=== PATIENT | male | born 1995 | race Caucasian/White ===

== ENCOUNTER 2020-08-05 17:05 | Emergency (ER) | payer BC ==
[~2020-08-05] VITALS: Ht 154.9 cm; Wt 54.4 kg
[2020-08-05] MEDS ORDERED: NAPROXEN250 MG PO (18:00)
[2020-08-05] MEDS ORDERED: METHOCARBAMOL750 MG PO (18:00)
[2020-08-05 20:09] LABS: BASOPHILS % 0.4 % (0.0-1.0); EOSINOPHILS # (AUTO) 0.1 (0.0-0.4); EOSINOPHILS % 1.3 % (0.0-6.0); HEMATOCRIT 39.7 % (38.2-49.6); HEMOGLOBIN 14.1 g/dL (14.0-18.0); LYMPHOCYTES # (AUTO) 1.6 (1.0-3.2); LYMPHOCYTES % 29.7 % (18.0-39.1); MEAN CORPUSCULAR HEMOGLOBIN 31.7 pg (28-32); MEAN CORPUSCULAR HGB CONC 35.5 g/dL (31-35); MEAN CORPUSCULAR VOLUME 89.2 fL (81-99); MONOCYTES # (AUTO) 0.4 (0.2-0.8); MONOCYTES % 7.8 % (4.4-11.3); NEUTROPHILS # (AUTO) 3.3 (2.1-6.9); NEUTROPHILS % 60.6 % (38.7-80.0); PLATELET COUNT 154 x10e3/uL (140-360); RED BLOOD COUNT 4.45 x10e6/uL (4.3-5.7); RED CELL DISTRIBUTION WIDTH 13.9 % (11.7-14.4)
[2020-08-05 20:14] LABS: INR 0.94; PROTHROMBIN TIME 13.2 seconds (11.9-14.5)
[2020-08-05 20:23] LABS: ALANINE AMINOTRANSFERASE 43 IU/L (0-55); ALBUMIN 4.3 g/dL (3.5-5.0); ALBUMIN/GLOBULIN RATIO 1.1 (0.8-2.0); ALKALINE PHOSPHATASE 146 IU/L (40-150); ANION GAP 14.3 mmol/L (8-16); BLOOD UREA NITROGEN 16 mg/dL (7-26); BUN/CREATININE RATIO 16 (6-25); CALCIUM 8.7 mg/dL (8.4-10.2); CARBON DIOXIDE 29 mmol/L (22-29); CHLORIDE 98 mmol/L (98-107); CREATININE, SERUM 0.98 mg/dL (0.72-1.25); EST GLOMERULAR FILTRATION RATE > 60 ML/MIN (60-); GLUCOSE 99 mg/dL (74-118); POTASSIUM 4.3 mmol/L (3.5-5.1); SODIUM 137 mmol/L (136-145)
[2020-08-05] MEDS ORDERED: ACETAMINOPHEN 325 MG TAB PO ONE (21:00)
[2020-08-05] MEDS ORDERED: ACETAMINOPHEN 325 MG TAB ONE (21:04)
== END 2020-08-05 21:45 | disposition other institution (70) ==
LOC: ER 17:52
DX: S06.0X0A Concussion without loss of consciousness, initial encounter (principal); V43.62XA Car passenger injured in collision with other type car in traffic accident, initial encounter; Y92.488 Other paved roadways as the place of occurrence of the external cause; I10 Essential (primary) hypertension; E78.5 Hyperlipidemia, unspecified; I45.6 Pre-excitation syndrome
CPT/HCPCS: 36415; 70450; 72125; 80053; 85025; 85610; 93005; 99284

== ENCOUNTER 2021-05-20 17:26 | Emergency (ER) | payer BC, OTHER ==
[~2021-05-20] VITALS: Ht 154.9 cm; Wt 56.7 kg
[~2021-05-20 17:26] MED LIST: METHOCARBAMOL750 MG PO; NAPROXEN250 MG PO
[2021-05-20] MEDS ORDERED: SODIUM CHLORIDE 0.9% 1000ML 1,000 ML STA (18:19)
[2021-05-20] MEDS ORDERED: ONDANSETRON HCL INJ 2MG/ML 2ML 2 MG/ML VIAL IV ONE (18:30)
[2021-05-20] MEDS ORDERED: SODIUM CHLORIDE 0.9% 1000ML 1,000 ML ONE (18:40)
[2021-05-20] MEDS ORDERED: ONDANSETRON HCL INJ 2MG/ML 2ML 2 MG/ML VIAL ONE ×2 (18:40→20:24)
[2021-05-20] MEDS ORDERED: IOPAMIDOL 370 MG/ML 200 ML INFUS..BTL INJ ONE (18:48)
[2021-05-20] MEDS ORDERED: SODIUM CHLORIDE 0.9% 50ML 50 ML ONE (18:48)
[2021-05-20] MEDS ORDERED: ONDANSETRON HCL INJ 2MG/ML 2ML 2 MG/ML VIAL IV STA (19:41)
[2021-05-20 21:18] VITALS: BP 111/69
[2021-05-20] MEDS ORDERED: ONDANSETRON ODT8 MG PO (21:21)
== END 2021-05-20 21:29 | disposition home or self-care (01) ==
LOC: FSED 17:48
DX: R11.2 Nausea with vomiting, unspecified (principal); E86.0 Dehydration; R19.7 Diarrhea, unspecified; I10 Essential (primary) hypertension; E78.5 Hyperlipidemia, unspecified; Q23.4 Hypoplastic left heart syndrome; I45.6 Pre-excitation syndrome
CPT/HCPCS: 36415; 74177; 80053; 80076; 81003; 83690; 85025; 96374; 96376; 99284; J2405; J7030; Q9967

== ENCOUNTER 2021-09-15 19:16 | Emergency (ER) | payer MEDICARE, OTHER ==
[~2021-09-15] VITALS: Ht 154.9 cm; Wt 52.2 kg
[~2021-09-15 19:16] MED LIST changes: +ONDANSETRON ODT8 MG PO
[2021-09-15] MEDS ORDERED: FAMOTIDINE 20 MG/2 ML VIAL IV STA (20:56)
[2021-09-15] MEDS ORDERED: PROMETHAZINE 25MG/ NS 50ML (IV) IV ONE (21:00)
[2021-09-15] MEDS ORDERED: SODIUM CHLORIDE 0.9% 1000ML 1,000 ML IV SCH (21:00)
[2021-09-15] MEDS ORDERED: PROMETHAZINE HCL (IM) 25 MG/ML VIAL IM ONE (21:18)
[2021-09-15] MEDS ORDERED: FAMOTIDINE 20 MG/2 ML VIAL IV ONE (21:19)
[2021-09-15] MEDS ORDERED: SODIUM CHLORIDE 0.9% 1000ML 1,000 ML ONE (21:19)
[2021-09-15] MEDS ORDERED: IOPAMIDOL 370 MG/ML 100 ML INFUS..BTL INJ ONE (22:06)
[2021-09-15] MEDS ORDERED: FAMOTIDINE40 MG PO (23:43)
[2021-09-15] MEDS ORDERED: PROMETHAZINE12.5 M1 PO (23:44)
== END 2021-09-16 00:15 | disposition home or self-care (01) ==
LOC: FSED 19:25
DX: R11.2 Nausea with vomiting, unspecified (principal); K29.70 Gastritis, unspecified, without bleeding; G35 Multiple sclerosis; E78.5 Hyperlipidemia, unspecified; I10 Essential (primary) hypertension; Z94.1 Heart transplant status
CPT/HCPCS: 74177; 99284; J2550; J7030; 80048; 80076; 81003; 85025; Q9967